=== PATIENT | female | born 1995 | race Caucasian/White ===

== ENCOUNTER 2016-08-25 07:33 | Day surgery (SDC) | payer OTHER ==
[2016-08-16 17:19] LABS: BASOPHILS 0.2 %; BASOPHILS ABSOLUTE 0.02 10/3/uL (0.0-0.16); EOSINOPHILS 1.3 %; EOSINOPHILS ABSOLUTE 0.11 10/3/uL (0.0-0.53); HEMATOCRIT 36.3 % (36.0-48.0); HEMOGLOBIN 11.9 g/dL (12.0-16.0); IMMATURE GRANULOCYTES 0.1 %; IMMATURE GRANULOCYTES ABSOLUTE 0.01 10/3/uL (0.0-0.11); LYMPHOCYTES 30.6 %; LYMPHOCYTES ABSOLUTE 2.69 10/3/uL (0.67-4.30); MEAN CORPUS HGB CONC 32.8 g/dL (32.0-36.0); MEAN CORPUSCULAR HEMOGLOB 27.9 pg (26.0-34.0); MEAN PLATELET VOLUME 9.4 fL (9.2-13.0); MONOCYTES 8.4 %; MONOCYTES ABSOLUTE 0.74 10/3/uL (0.21-1.20); NEUTROPHILS 59.4 %; NEUTROPHILS ABSOLUTE 5.21 10/3/uL (2.02-8.40); PLATELET COUNT 347 10/3/uL (150-400); RBC DISTRIBUTION WIDTH 14.2 % (12.0-16.0); RED CELL COUNT 4.27 10/6/uL (4.0-5.6); WHITE BLOOD CELLS 8.8 10/3/uL (4.5-10.5)
[2016-08-16 17:22] LABS: MANUAL DIFF NO %
[2016-08-16 17:38] LABS: BUN (BLOOD UREA NITROGEN) 14 MG/DL (6-23); CALCIUM, SERUM 8.7 MG/DL (8.5-10.4); CHLORIDE, SERUM 106 MMOL/L (96-112); CO2 (CARBON DIOXIDE) 28 MMOL/L (24-34); CREATININE 0.84 MG/DL (0.55-1.02); GFR AFRICAN AMERICAN 114 ML/MIN (>=60); GFR NON AFRICAN AMERICAN 99 ML/MIN (>=60); GLUCOSE, SERUM 89 MG/DL (60-99); POTASSIUM, SERUM 4.2 MMOL/L (3.5-5.3); SODIUM, SERUM 141 MMOL/L (135-148)
--- NOTE | ~2016-08-25 | OP ---
Record Of [id number] [facility] [place]. [address] NAME: SHANTHI CLEMONS : 89 STATUS : REG [facility] PAT#: [id number] AGE: 21 ADM/REG DATE : 08/25/16 MR#: [id number] REPORT SERV DATE: 08/25/16 DICTATED BY: MORGAN NUNEZ DATE: 08/25/16 REPORT STATUS : Draft TRANSCRIBED BY: MODL DATE: 08/25/16 DATE OF PROCEDURE: 08/25/2016 SERVICE: Otolaryngology. PREOPERATIVE DIAGNOSIS: Chronic tonsillitis. POSTOPERATIVE DIAGNOSIS: Chronic tonsillitis. PROCEDURE: Tonsillectomy. ANESTHESIA: General endotracheal anesthesia. COMPLICATIONS: None. SPECIMENS: 1. Left tonsil. 2. Right tonsil. FINDINGS: Patient had 3+ cryptic tonsils. STATEMENT OF MEDICAL NECESSITY: This is a 21-year-old female with history of recurrent acute tonsillitis and chronic sore throat requesting tonsillectomy. STATEMENT OF OPERATION: The patient was brought to the operating room in supine position, transferred to the operating table. All pressure points were padded. General endotracheal anesthesia was established. The patient's neck was placed in slight extension with a shoulder roll. Bacitracin ointment was applied to the lips. Afrin instilled in each nostril. A McIvor mouth gag was inserted and locked for retraction of tongue and oral cavity. 6 mL total of 0.25% plain Marcaine were injected in the peritonsillar spaces and parapharyngeal muscles bilaterally. The left tonsil was removed first with suction cautery followed by the right tonsil. Hemostasis obtained with suction cautery. The nasopharynx and pharynx were irrigated thoroughly with warm saline. The stomach was suctioned clear of blood and fluid with an orogastric tube. This concluded the case. The patient awoke, was extubated, and transferred to the PACU in stable condition. PS/MODL Morgan Nunez MD / [id number] CC: Record Of [address] [address] NAME: SHANTHI CLEMONS : [birth year] STATUS : REG [facility]#: [id number] AGE: 21 ADM/REG DATE : 08/25/16 MR#: [id number] REPORT SERV DATE: 08/25/16 DICTATED BY: MORGAN NUNEZ DATE: 08/25/16 REPORT STATUS : Draft TRANSCRIBED BY: MODL DATE: 08/25/16 MD WILLY Otero MICHAEL ROBERT
[~2016-08-25 07:33] MED LIST: PRILOSEC40 MG PO; PRIN20 PO; VITC500
== END 2016-08-25 23:59 | disposition home or self-care (01) ==
LOC: MSC 07:33
PROVIDERS: Otolaryngology
PROC: 0CTPXZZ Resection of Tonsils, External Approach (ICD-10-PCS; principal; 2016-08-25 08:45)
DX: J35.01 Chronic tonsillitis (principal); I10 Essential (primary) hypertension; K21.9 Gastro-esophageal reflux disease without esophagitis; Z79.899 Other long term (current) drug therapy; Z98.890 Other specified postprocedural states
CPT/HCPCS: 80048; 84703; 85025; 88304; 93005; A9270-GY; J2250; J2405; J2550; J3010